=== PATIENT | male | born 1940 | race Caucasian/White ===

== ENCOUNTER 2017-12-03 09:24 | Inpatient (IN) | payer OTHER ==
[~2017-12-03] VITALS: Ht 170.2 cm; Wt 78.5 kg
[2017-12-03] MEDS ORDERED: SODIUM CHLORIDE 0.9% 500ML 500 ML IV STA (09:44)
--- NOTE | 2017-12-03 09:47 | EMERGENCY ROOM VISIT NOTE ---
History Report prepared by Yolande: Domenico Rendon Under the Supervision of: Dr. Rodney Flowers M.D. First contact with patient: 09:34 Chief Complaint: NEURO SYMPTOMS Stated Complaint: DEMENTIA History of Present Illness The patient is a 77 year old white male with a past medical history of HTN, hypothyroidism, dementia who presents to the ED with a cc of worsening dementia beginning five days ago. Positive erratic behavior, aggressive behavior, drooling more often, feeding an imaginary cat, eating imaginary food. Negative active bleeding or bruising. Pt's family states his symptoms began last Friday with an episode of erratic behavior. They reports it progressed on Friday to an aggressive out break with his . Family notes the patient was found this morning in the basement covered in sawdust. They state they do not know how he got there, and they did not see active bleeding or bruising. Family reports they do not know how he got there. They note he ate well last night. Family states this morning the patient was feeing an imaginary cat, drooling more often , and eating imaginary food. They note he does not take medication for his dementia. HPI limited secondary to the patient's dementia. Source of History: family History Limited By: dementia Review of Systems ROS limited secondary to the patient's dementia. Past Medical & Surgical Medical Problems: (1) Altered mental status (2) Dementia (3) HTN (hypertension) (4) Hypothyroidism (5) Pneumonia Surgical Problems: (1) History of lumbar surgery (2) Hx of hernia repair Family History Diabetes mellitus Hypertension Social History Smoking Status: Never Smoker Marital Status: Housing Status: lives with significant other Current/Historical Medications Scheduled Furosemide (Lasix), 20 MG PO QAM Levothyroxine Sodium (Levothyroxine Sodium), 75 MCG PO DAILY Lisinopril (Zestril), 5 MG PO DAILY Trazodone HCl (Trazodone HCl), 1 TAB PO UD Trazodone Hcl (Trazodone), 0.5 TAB PO HS Scheduled PRN Quetiapine Fumarate (Seroquel), 25 MG PO BID PRN for Agitation Allergies Coded Allergies: Sulfa Antibiotics (Unverified Allergy, Unknown, unk, 12/03/17) Physical Exam Vital Signs Date Time Temp Pulse Resp B/P (MAP) Pulse Ox O2 Delivery O2 Flow Rate FiO2 12/03/17 09:27 62 18 113/64 92 Room Air Physical Exam GENERAL: Awake, alert, well-appearing, NAD HENT: Normocephalic, atraumatic. EYES: Normal conjunctiva. Sclera non-icteric. PER. No anisocoria. Exotropia. Pinpoint pupils. NECK: Supple. No nuchal rigidity. FROM. RESPIRATORY: CTAB, no rhonchi, wheezing, crackles CARDIAC: RRR, no MRG ABDOMEN: Soft, NTND, BS+ MSK: No chest wall TTP, no LE edema NEURO: Baseline mental status. A&Ox0. Intermittently speaking in full sentences and follows commands. SKIN: No rash or jaundice noted. Medical Decision & Procedures ER Provider Diagnostic Interpretation: Radiology results as stated below per my review and radiologist interpretation: CT OF THE HEAD WITHOUT CONTRAST CLINICAL HISTORY: Weakness. COMPARISON STUDY: No previous studies for comparison. CT DOSE: 537.48 mGy.cm TECHNIQUE: Helical axial images of the head were obtained without IV contrast. Automated exposure control was utilized for the study. A dose lowering technique was utilized adhering to the principles of ALARA. FINDINGS: No acute intracranial hemorrhage, midline shift or mass effect is present. Mild ventricular dilatation is due to atrophy. Basilar cisterns are patent. There are no extra-axial collections. Mild white matter hypodensity suggests small vessel disease. There are no findings to suggest acute dural sinus thrombosis or acute territorial infarct. There are no significant calvarial abnormalities. Visualized portions of the sinuses and the mastoid air cells are clear. IMPRESSION: No acute intracranial findings. Electronically signed by: Cyril Alvarez M.D. 12/03/2017 10:36 AM Dictated Date/Time: 12/03/2017 10:34 AM CHEST ONE VIEW PORTABLE CLINICAL HISTORY: EVALUATE WEAKNESS COMPARISON STUDY: No previous studies for comparison. FINDINGS: The bones soft tissues and hemidiaphragms are normal. The cardiomediastinal silhouette is normal. The lungs are clear. The pulmonary vasculature is normal. Small parenchymal or left base IMPRESSION: Small parenchymal infiltrate left base. The above report was generated using voice recognition software. It may contain grammatical, syntax or spelling errors. Electronically signed by: Rusty Nieto M.D. 12/03/2017 10:11 AM Dictated Date/Time: 12/03/2017 10:08 AM Laboratory Results 7/25/18 09:44 Red Blood Count 5.39, Mean Corpuscular Volume 85.3, Mean Corpuscular Hemoglobin 28.2, Mean Corpuscular Hemoglobin Concent 33.0, Mean Platelet Volume 9.2, Neutrophils (%) (Auto) 71.6, Lymphocytes (%) (Auto) 18.0, Monocytes (%) (Auto) 9.0, Eosinophils (%) (Auto) 0.8, Basophils (%) (Auto) 0.2, Neutrophils # (Auto) 7.40, Lymphocytes # (Auto) 1.86, Monocytes # (Auto) 0.93, Eosinophils # (Auto) 0.08, Basophils # (Auto) 0.02 12/03/17 09:44 Test 12/03/17 09:44 White Blood Count 10.33 K/uL (4.8-10.8) Red Blood Count 5.39 M/uL (4.7-6.1) Hemoglobin 15.2 g/dL (14.0-18.0) Hematocrit 46.0 % (42-52) Mean Corpuscular Volume 85.3 fL (80-100) Mean Corpuscular Hemoglobin 28.2 pg (25-34) Mean Corpuscular Hemoglobin Concent 33.0 g/dl (32-36) Platelet Count 225 K/uL (130-400) Mean Platelet Volume 9.2 fL (7.4-10.4) Neutrophils (%) (Auto) 71.6 % Lymphocytes (%) (Auto) 18.0 % Monocytes (%) (Auto) 9.0 % Eosinophils (%) (Auto) 0.8 % Basophils (%) (Auto) 0.2 % Neutrophils # (Auto) 7.40 K/uL (1.4-6.5) Lymphocytes # (Auto) 1.86 K/uL (1.2-3.4) Monocytes # (Auto) 0.93 K/uL (0.11-0.59) Eosinophils # (Auto) 0.08 K/uL (0-0.5) Basophils # (Auto) 0.02 K/uL (0-0.2) RDW Standard Deviation 44.0 fL (36.4-46.3) RDW Coefficient of Variation 14.2 % (11.5-14.5) Immature Granulocyte % (Auto) 0.4 % Immature Granulocyte # (Auto) 0.04 K/uL (0.00-0.02) Prothrombin Time 10.7 SECONDS (9.0-12.0) Prothromb Time International Ratio 1.0 (0.9-1.1) Activated Partial Thromboplast Time 26.6 SECONDS (21.0-31.0) Partial Thromboplastin Ratio 1.0 Anion Gap 6.0 mmol/L (3-11) Est Creatinine Clear Calc Drug Dose 45.2 ml/min Estimated GFR () 61.4 Estimated GFR (Non- 53.0 BUN/Creatinine Ratio 14.6 (10-20) Calcium Level 8.8 mg/dl (8.5-10.1) Magnesium Level 2.3 mg/dl (1.8-2.4) Total Bilirubin 0.9 mg/dl (0.2-1) Direct Bilirubin 0.2 mg/dl (0-0.2) Aspartate Amino Transf (AST/SGOT) 15 U/L (15-37) Alanine Aminotransferase (ALT/SGPT) 23 U/L (12-78) Alkaline Phosphatase 128 U/L (45-117) Troponin I < 0.015 ng/ml (0-0.045) Pro-B-Type Natriuretic Peptide 28 pg/ml (0-1800) Total Protein 7.8 gm/dl (6.4-8.2) Albumin 3.8 gm/dl (3.4-5.0) Lipase 94 U/L (73-393) Thyroid Stimulating Hormone (TSH) 3.170 uIu/ml (0.300-4.500) Laboratory results reviewed by me ECG Per My Interpretation Indication: altered mental status Rate (beats per minute): 59 Rhythm: sinus bradycardia Findings: T-wave inversion (Lead III), other (Normal intervals. Normal axis.) ED Course 0937: The patient was evaluated in room B04B. A complete history and physical exam was performed. 1117: Upon reexamination, the patient was resting. I discussed the test results and treatment plan with his family. The patient will be evaluated for further management. 1124: I discussed the patient's case with LAEX Domingo, [facility]ist. The patient will be evaluated for further management. Medical Decision The patient is a 77 year old white male with a past medical history of HTN, hypothyroidism, dementia who presents to the ED with a cc of worsening dementia beginning five days ago. Nursing notes reviewed. Ancillary studies and prior records reviewed. Differential diagnosis: Etiologies such as metabolic, infection, hypoglycemia, electrolyte abnormalities , cardiac sources, intracerebral event, toxicologic, neurologic, as well as others were entertained. Patient was seen and evaluated the bedside. There was concern for increased lapses in responsiveness as well as an increased drooling. The patient apparently per family had fairly negative workup at [place]. Patient does intermittently follow commands and does seem appropriate on occasion. The patient is alert but not oriented. Patient does have a known history of dementia. Given the prolonged time course and unknown last well time I do not believe that this is an acute stroke nor with the patient be a TPA candidate. Patient did have blood work completed along with EKG, troponin, chest x-ray, urinalysis, and CT of the brain. Patient's imaging studies are negative acute. EKG is fairly unremarkable troponin is not elevated. Chest x-ray did show questionable left lower lobe pneumonia. Given the patient's drooling and concern for left lower lobe pneumonia the patient was started on Rocephin and is a 3. I did speak with the on-call hospitalist and discussed the patient's CURP 65 score was 2. We did discuss the possibility of aspiration but we deferred any anaerobic coverage at this time. Patient was admitted to the medicine service. Medication Reconcilliation Current Medication List: was personally reviewed by me Blood Pressure Screening Patient's blood pressure: Normal blood pressure Blood pressure disposition: Did not require urgent referral Consults Time Called: 1115 Consulting Physician[facility] Returned Call: 1124 I discussed the patient's case with [facility]LEX [facility]. The patient will be evaluated for further management. Impression Primary Impression: Pneumonia Additional Impression: Dementia Scribe Attestation The scribe's documentation has been prepared under my direction and personally reviewed by me in its entirety. I confirm that the note above accurately reflects all work, treatment, procedures, and medical decision making performed by me. Departure Information Dispostion Being Evaluated By Hospitalist Referrals Gene Fernandez M.D. (PCP) Forms WORK / SCHOOL INSTRUCTIONS, HOME CARE DOCUMENTATION FORM, IMPORTANT VISIT INFORMATION Patient Instructions My [facility] Problem Qualifiers Primary Impression: Pneumonia Pneumonia type: due to unspecified organism Laterality: left Lung location : lower lobe of lung Qualified Codes: J18.1 - Lobar pneumonia, unspecified organism Additional Impression: Dementia Dementia type: unspecified type Dementia behavioral disturbance: without behavioral disturbance Qualified Codes: F03.90 - Unspecified dementia without behavioral disturbance
[2017-12-03 10:02] LABS: BASO % 0.2 %; BASO ABS # 0.02 K/uL (0-0.2); EOS % 0.8 %; EOS ABS # 0.08 K/uL (0-0.5); HEMOGLOBIN 15.2 g/dL (14.0-18.0); IG# 0.04 K/uL (0.00-0.02); LYMPH ABS # 1.86 K/uL (1.2-3.4); MEAN CELL VOLUME 85.3 fL (80-100); MEAN CORPUSCULAR HEMOGLOBIN 28.2 pg (25-34); MEAN PLATELET VOLUME 9.2 fL (7.4-10.4); MONO ABS # 0.93 K/uL (0.11-0.59); NEUT % 71.6 %; PLATELET COUNT 225 K/uL (130-400); RED CELL DISTRIBUTION WIDTH CV 14.2 % (11.5-14.5); WHITE BLOOD COUNT 10.33 K/uL (4.8-10.8)
[2017-12-03] MEDS ORDERED: LEVO75TA5 PO (11:54)
[2017-12-03] MEDS ORDERED: LISI-729 PO (11:54)
[2017-12-03] MEDS ORDERED: QUET1TAB30 PO (11:54)
[2017-12-03] MEDS ORDERED: TRAZ100T29 PO ×2 (11:54)
[2017-12-03] MEDS ORDERED: FURO-85 PO (11:54)
[2017-12-03 12:00] LABS: PTT PATIENT 26.6 SECONDS (21.0-31.0)
[2017-12-03] MEDS ORDERED: ONDANSETRON INJ 2 MG/ML 2 ML VIAL IV PRN (12:00)
[2017-12-03] MEDS ORDERED: ACETAMINOPHEN 325 MG TAB PO PRN (12:00)
[2017-12-03] MEDS ORDERED: POLYETHYLENE (MIRALAX) 17 GM PACK PO PRN (12:00)
[2017-12-03] MEDS ORDERED: SODIUM CHLORIDE 0.9% 1000ML 1,000 ML IV SCH (12:00)
[2017-12-03] MEDS ORDERED: DSY50 PO (12:02)
[2017-12-03] MEDS ORDERED: TRAZ50TA35 PO (12:02)
[2017-12-03] MEDS ORDERED: AZITHROMYCIN 250 MG TAB ONE (12:04)
[2017-12-03] MEDS ORDERED: CEFTRIAXONE SOD INJ 1 GM ADDVIAL ONE (12:05)
[2017-12-03 12:10] VITALS: O2SAT 92; Ht 170.2 cm; Wt 78.5 kg
[2017-12-03] MEDS ORDERED: QUETIAPINE FUMARATE 25 MG TAB PO PRN (12:15)
--- NOTE | 2017-12-03 12:23 | DIAGNOSTIC IMAGING REPORT ---
CT OF THE HEAD WITHOUT CONTRAST CLINICAL HISTORY: Weakness. COMPARISON STUDY: No previous studies for comparison. CT DOSE: 537.48 mGy.cm TECHNIQUE: Helical axial images of the head were obtained without IV contrast. Automated exposure control was utilized for the study. A dose lowering technique was utilized adhering to the principles of ALARA. FINDINGS: No acute intracranial hemorrhage, midline shift or mass effect is present. Mild ventricular dilatation is due to atrophy. Basilar cisterns are patent. There are no extra-axial collections. Mild white matter hypodensity suggests small vessel disease. There are no findings to suggest acute dural sinus thrombosis or acute territorial infarct. There are no significant calvarial abnormalities. Visualized portions of the sinuses and the mastoid air cells are clear. IMPRESSION: No acute intracranial findings. Electronically signed by: Cyril Alvarez M.D. 12/03/2017 10:36 AM Dictated Date/Time: 12/03/2017 10:34 AM
[2017-12-03 13:43] LABS: BLOOD UREA NITROGEN 19 mg/dl (7-18); GLUCOSE 107 mg/dl (70-99)
[2017-12-03 13:44] LABS: ALBUMIN 3.8 gm/dl (3.4-5.0); CALCIUM 8.8 mg/dl (8.5-10.1); CARBON DIOXIDE 29 mmol/L (21-32); POTASSIUM 3.9 mmol/L (3.5-5.1); SODIUM 139 mmol/L (136-145); TOTAL PROTEIN 7.8 gm/dl (6.4-8.2)
[2017-12-03 13:45] LABS: ALKALINE PHOSPHATASE 128 U/L (45-117); ALT/SGPT 23 U/L (12-78); AST/SGOT 15 U/L (15-37); LIPASE 94 U/L (73-393)
[2017-12-03] MEDS ORDERED: PNEUMOCOCCAL ADMINISTRATION CHARGE ONE (14:15)
[2017-12-03] MEDS ORDERED: PNEUMOCOCCAL POLYSACCHARIDES 25 MCG/0.5 ML VIAL/SYR IM. ONE (14:15)
--- NOTE | 2017-12-03 14:18 | DIAGNOSTIC IMAGING REPORT ---
CHEST ONE VIEW PORTABLE CLINICAL HISTORY: EVALUATE WEAKNESS COMPARISON STUDY: No previous studies for comparison. FINDINGS: The bones soft tissues and hemidiaphragms are normal. The cardiomediastinal silhouette is normal. The lungs are clear. The pulmonary vasculature is normal. Small parenchymal or left base IMPRESSION: Small parenchymal infiltrate left base. The above report was generated using voice recognition software. It may contain grammatical, syntax or spelling errors. Electronically signed by: Rusty Nieto M.D. 12/03/2017 10:11 AM Dictated Date/Time: 12/03/2017 10:08 AM
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
[2017-12-03] MEDS: HEPARIN SOD 5000 UNIT/0.5 ML CARP SQ SCH ×2 (15:00→20:47)
[2017-12-03 15:41] VITALS: BP 126/74; PULSE 63; TEMP 36.1; O2SAT 92
[2017-12-03 16:30] VITALS: O2SAT 92
[2017-12-03] MEDS: TRAZODONE HCL 50 MG TAB PO SCH ×2 (17:49→20:43)
[2017-12-03 23:54] VITALS: BP 134/82; PULSE 56; TEMP 36.9; O2SAT 95
[2017-12-04] MEDS: LEVOTHYROXINE 75 MCG TAB PO SCH (05:51)
[2017-12-04] MEDS: HEPARIN SOD 5000 UNIT/0.5 ML CARP SQ SCH ×3 (05:55→21:43)
[2017-12-04 06:56] LABS: HEMATOCRIT 42.9 % (42-52); MEAN CELL VOLUME 85.8 fL (80-100); MEAN CORPUSCULAR HGB CONC 32.6 g/dl (32-36); MEAN PLATELET VOLUME 9.5 fL (7.4-10.4); PLATELET COUNT 179 K/uL (130-400); RED CELL DISTRIBUTION WIDTH CV 14.4 % (11.5-14.5); WHITE BLOOD COUNT 6.84 K/uL (4.8-10.8)
[2017-12-04 07:30] LABS: CALCIUM 8.3 mg/dl (8.5-10.1); CREATININE 1.15 mg/dl (0.60-1.40); POTASSIUM 4.2 mmol/L (3.5-5.1)
[2017-12-04 07:32] VITALS: BP 123/73; PULSE 60; TEMP 36.7; O2SAT 96
[2017-12-04] MEDS: LISINOPRIL 5 MG TAB PO SCH (07:46)
[2017-12-04] MEDS: AZITHROMYCIN 250 MG TAB PO SCH (07:46)
[2017-12-04] MEDS: FUROSEMIDE 20 MG TAB PO SCH (07:46)
[2017-12-04] MEDS: CEFTRIAXONE SOD INJ 1 GM in DEXTROSE 5% ADD-VANTAGE 50ML 50 ML IV SCH (12:56)
[2017-12-04 15:05] VITALS: BP 126/73; PULSE 57; TEMP 36.3; O2SAT 97
[2017-12-04] MEDS: TRAZODONE HCL 50 MG TAB PO SCH ×2 (17:42→21:20)
--- NOTE | 2017-12-04 18:22 | Progress Note ---
Internal Med Progress Note Date of Service: Dec 04, 2017. Provider Documentation: SUBJECTIVE: Advanced dementia, very pleasant No fever or chills Minimum cough in dependent in ADLs, walking independently in room, no loss of balance noted Brother visiting OBJECTIVE: Vital Signs-as noted below Exam: General-elderly male, no apparent distress Eyes-sclera nonicteric, pupils bilateral equal reactive to light extraocular muscle intact ENT-moist oral mucosa Neck-supple, no JVD no carotid bruit thyromegaly, trachea midline Lungs-diminished with crackles at base Heart-S1-S2 no murmur gallop Abdomen-soft nontender, no organomegaly, bowel sounds active Extremities-no lower extremity edema, no rash no deformed Neuro-baseline advanced dementia, no focal neurological deficit Lab data as noted below. ASSESSMENT & PLAN: COMMINUTED ACQUIRED PNEUMONIA Worsening of mental status/confused CXR:IMPRESSION: Small parenchymal infiltrate left base. Empiric antibiotic with IV Rocephin and oral Zithromax Plan to switch to single oral agent tomorrow, complete total 5/7 days course No evidence of sepsis Monitor clinically ALTERED MENTAL STATUS/CONFUSION /METABOLIC ENCEPHALOPATHY DEMENTIA History of advanced dementia, with a gradual deconditioning noted by family Worsening of mental status in the past few days, associated with agitation, wandering Possible metabolic encephalopathy secondary to dehydration, pneumonia UA: negative. CT head: no acute changes -Monitor clinically -Fall precaution -Home meds Seroquel, trazodone-for agitation-continue -Caution for sundowning/delirium Ordered for bed and chair alarm Family is interested in long-term placement -case management consulted for assistance in possible placement HTN Stable -continue lisinopril, lasix HYPOTHYROIDISM TSH: 3.1 -continue levothyroxine CKD III renal function stable Cr: 1.3. baseline Cr: 1.4 -monitor renal functions -avoid nephrotoxic agents when possible DVT Prophylaxis -Heparin SQ CODE STATUS: DNR/DNI DISPOSITION To be determined Will need placement PT OT evaluation requested Social service consulted for discharge planning Vital Signs: Date Time Temp Pulse Resp B/P (MAP) Pulse Ox O2 Delivery O2 Flow Rate FiO2 12/04/17 23:42 36.6 61 18 121/70 (87) 93 Room Air 12/04/17 21:30 Room Air 12/04/17 15:05 36.3 57 18 126/73 (90) 97 Room Air 12/04/17 09:15 Room Air 12/04/17 07:32 36.7 60 18 123/73 (90) 96 Room Air Lab Results: Results Past 24 Hours Test 12/04/17 06:01 Range/Units White Blood Count 6.84 4.8-10.8 K/uL Red Blood Count 5.00 4.7-6.1 M/uL Hemoglobin 14.0 14.0-18.0 g/dL Hematocrit 42.9 42-52 % Mean Corpuscular Volume 85.8 80-100 fL Mean Corpuscular Hemoglobin 28.0 25-34 pg Mean Corpuscular Hemoglobin Concent 32.6 32-36 g/dl RDW Standard Deviation 45.0 36.4-46.3 fL RDW Coefficient of Variation 14.4 11.5-14.5 % Platelet Count 179 130-400 K/uL Mean Platelet Volume 9.5 7.4-10.4 fL Sodium Level 141 136-145 mmol/L Potassium Level 4.2 3.5-5.1 mmol/L Chloride Level 108 98-107 mmol/L Carbon Dioxide Level 26 21-32 mmol/L Anion Gap 7.0 3-11 mmol/L Blood Urea Nitrogen 17 7-18 mg/dl Creatinine 1.15 0.60-1.40 mg/dl Est Creatinine Clear Calc Drug Dose 51.1 ml/min Estimated GFR () 71.2 Estimated GFR (Non- 61.5 BUN/Creatinine Ratio 14.5 10-20 Random Glucose 103 70-99 mg/dl Calcium Level 8.3 8.5-10.1 mg/dl
[2017-12-04 23:42] VITALS: BP 121/70; PULSE 61; TEMP 36.6; O2SAT 93
[2017-12-05] MEDS: HEPARIN SOD 5000 UNIT/0.5 ML CARP SQ SCH ×2 (06:26→13:52)
[2017-12-05] MEDS: LEVOTHYROXINE 75 MCG TAB PO SCH (06:38)
[2017-12-05] MEDS: AZITHROMYCIN 250 MG TAB PO SCH (07:11)
[2017-12-05] MEDS: LISINOPRIL 5 MG TAB PO SCH ×2 (07:12→14:58)
[2017-12-05] MEDS: FUROSEMIDE 20 MG TAB PO SCH (07:12)
[2017-12-05 07:54] VITALS: BP 96/69; PULSE 55; TEMP 36.3; O2SAT 96
[2017-12-05] MEDS: CEFTRIAXONE SOD INJ 1 GM in DEXTROSE 5% ADD-VANTAGE 50ML 50 ML IV SCH (12:46)
[2017-12-05 15:22] VITALS: BP 106/66; PULSE 73; TEMP 35.9; O2SAT 96
[2017-12-05] MEDS: TRAZODONE HCL 50 MG TAB PO SCH (16:11)
--- NOTE | 2017-12-05 16:21 | Discharge Instructions ---
Discharge Instructions Date of Service Dec 05, 2017. Admission Reason for Admission: Altered Mental Status, Pneumonia Discharge Discharge Diagnosis / Problem: COMMUNITY-ACQUIRED PNEUMONIA/DEMENTIA Discharge Goals Goal(s): Decrease discomfort, Improve function, Diagnostic testing, Therapeutic intervention Activity Recommendations Activity Limitations: resume your previous activity . Instructions / Follow-Up Instructions / Follow-Up Hospital follow-up with family physician Dr. HURT, in a week. Please call office to schedule an appointment Current Hospital Diet Patient's current hospital diet: AHA Diet (Heart Healthy) Discharge Diet Recommended Diet: AHA Diet (Heart Healthy) Pending Studies Studies pending at discharge: no Medical Emergencies . Who to Call and When: Medical Emergencies: If at any time you feel your situation is an emergency, please call 911 immediately. . Non-Emergent Contact Non-Emergency issues call your: Primary Care Provider . . "Provider Documentation" section prepared by Peyton Karimi. .
[2017-12-05] MEDS ORDERED: DXY100 PO (16:23)
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
[2017-12-05 16:34] VITALS: BP 106/66; PULSE 73; O2SAT 96
[2017-12-05] MEDS ORDERED: CLON0.5T9 PO (16:42)
== END 2017-12-05 17:00 | disposition home or self-care (01) | DRG 193 ==
LOC: C.EDB 09:25 → C.4E 11:59 → ENRESERV 12:16
PROVIDERS: ADMIT Internal Medicine; ATTEND Hospitalist
DX: J18.9 Pneumonia, unspecified organism (principal); G93.41 Metabolic encephalopathy; F03.91 Unspecified dementia, unspecified severity, with behavioral disturbance; Z91.83 Wandering in diseases classified elsewhere; R53.81 Other malaise; E86.0 Dehydration; I12.9 Hypertensive chronic kidney disease with stage 1 through stage 4 chronic kidney disease, or unspecified chronic kidney disease; N18.3 Chronic kidney disease, stage 3 (moderate); E03.9 Hypothyroidism, unspecified; Z66 Do not resuscitate; Z87.891 Personal history of nicotine dependence; Z79.899 Other long term (current) drug therapy; Z88.2 Allergy status to sulfonamides

== ENCOUNTER 2017-12-06 00:15 | Inpatient (IN) | payer OTHER ==
[~2017-12-06] VITALS: Ht 170.2 cm; Wt 78.1 kg
[~2017-12-06 00:15] MED LIST: CLON0.5T9 PO; DXY100 PO; FURO-85 PO; LEVO75TA5 PO; LISI-729 PO; QUET1TAB30 PO; TRAZ1TAB49 PO; TRAZ50TA35 PO
--- NOTE | 2017-12-06 01:26 | EMERGENCY ROOM VISIT NOTE ---
History Report prepared by Yolande: Kd Sierra Under the Supervision of: Dr. April Medina D.O. First contact with patient: 01:04 Chief Complaint: OTHER COMPLAINT Stated Complaint: HALLUCINATIONS History of Present Illness The patient is a 77 year old male who presents to the Emergency Room with complaints of constant visual hallucinations beginning a few days ago. Per nurse , the patient has been having hallucinations at home. She states that the patient's does "not know what to do with him," prompting his visit to the emergency department tonight. She notes that the patient was recently diagnosed with pneumonia and was admitted as an inpatient from 12/03/2017-12/05/2017. HPI limited secondary to AMS. Source of History: nursing staff History Limited By: AMS Onset: a few days ago Position: head Quality: other (visual hallucinations) Timing: constant Review of Systems See HPI for pertinent positives & negatives. A total of 10 systems reviewed and were otherwise negative. Past Medical & Surgical Medical Problems: (1) Agitation (2) Altered mental status (3) Dementia (4) HTN (hypertension) (5) Hypothyroidism (6) Pneumonia Surgical Problems: (1) History of lumbar surgery (2) Hx of hernia repair Family History Diabetes mellitus Hypertension Social History Smoking Status: Unknown if Ever Smoked Drug Use: none Marital Status: Housing Status: lives with family Occupation Status: retired Current/Historical Medications Scheduled Doxycycline Hyclate (Doxycycline Hyclate), 1 CAP PO BID Furosemide (Lasix), 20 MG PO QAM Levothyroxine Sodium (Levothyroxine Sodium), 75 MCG PO DAILY Lisinopril (Zestril), 5 MG PO DAILY Trazodone HCl (Trazodone HCl), 1 TAB PO UD Trazodone Hcl (Trazodone), 0.5 TAB PO HS Scheduled PRN Clonazepam (Klonopin), 1 TAB PO DAILY PRN for Sleep Quetiapine Fumarate (Seroquel), 25 MG PO BID PRN for Agitation Allergies Coded Allergies: Sulfa Antibiotics (Unverified Allergy, Unknown, unk, 12/06/17) Physical Exam Vital Signs Date Time Temp Pulse Resp B/P (MAP) Pulse Ox O2 Delivery O2 Flow Rate FiO2 12/06/17 04:14 65 20 150/87 96 Room Air 12/06/17 02:33 80 12/06/17 02:30 77 22 164/94 95 Room Air 12/06/17 00:25 36.4 81 20 107/64 95 Room Air Physical Exam General: Patient pleasantly demented, unable to answer any questions or follow commands appropriately. HEENT: Head - normocephalic and atraumatic Pupils are equal, round, and reactive to light. Extraocular eye muscles are intact, and sclera are anicteric. Nose - moist nasal mucosa without discharge. Mouth - dry buccal mucosa. Oropharynx is nonerythematous and there is no tonsillar exudate or edema noted. Neck: Supple; no JVD, nuchal rigidity, cervical lymphadenopathy. Heart: Regular rate and rhythm. There is a normal S1 and S2 with no murmurs, clicks, or gallops appreciated. Lungs: Clear to auscultation bilaterally with no wheezes, rales, or rhonchi. Abdomen: Soft, completely nontender, nondistended, with good bowel sounds. There are no palpable pulsatile masses or hepatosplenomegaly. There is no guarding, rigidity, or rebound noted. Extremities: No evidence of cyanosis, clubbing, or edema. There are easily palpable peripheral pulses. Skin: warm and dry with good turgor and no rashes. Medical Decision & Procedures ER Provider Diagnostic Interpretation: Radiology results as stated below per my review and the radiologist's interpretation: CT HEAD: No ICH, mass effect, or edema. No skull fracture. Visualized sinuses and mastoid air cells are clear. Radiologist: Sadaf Rutherford M.D. Laboratory Results 12/06/17 02:16 Red Blood Count 5.32, Mean Corpuscular Volume 84.6, Mean Corpuscular Hemoglobin 28.4, Mean Corpuscular Hemoglobin Concent 33.6, Mean Platelet Volume 9.3, Neutrophils (%) (Auto) 62.5, Lymphocytes (%) (Auto) 24.5, Monocytes (%) (Auto) 9.3, Eosinophils (%) (Auto) 2.9, Basophils (%) (Auto) 0.4, Neutrophils # (Auto) 5.00, Lymphocytes # (Auto) 1.96, Monocytes # (Auto) 0.74, Eosinophils # (Auto) 0.23, Basophils # (Auto) 0.03 12/06/17 02:16 Test 12/06/17 02:16 12/06/17 03:45 White Blood Count 7.99 K/uL (4.8-10.8) Red Blood Count 5.32 M/uL (4.7-6.1) Hemoglobin 15.1 g/dL (14.0-18.0) Hematocrit 45.0 % (42-52) Mean Corpuscular Volume 84.6 fL (80-100) Mean Corpuscular Hemoglobin 28.4 pg (25-34) Mean Corpuscular Hemoglobin Concent 33.6 g/dl (32-36) Platelet Count 206 K/uL (130-400) Mean Platelet Volume 9.3 fL (7.4-10.4) Neutrophils (%) (Auto) 62.5 % Lymphocytes (%) (Auto) 24.5 % Monocytes (%) (Auto) 9.3 % Eosinophils (%) (Auto) 2.9 % Basophils (%) (Auto) 0.4 % Neutrophils # (Auto) 5.00 K/uL (1.4-6.5) Lymphocytes # (Auto) 1.96 K/uL (1.2-3.4) Monocytes # (Auto) 0.74 K/uL (0.11-0.59) Eosinophils # (Auto) 0.23 K/uL (0-0.5) Basophils # (Auto) 0.03 K/uL (0-0.2) RDW Standard Deviation 43.1 fL (36.4-46.3) RDW Coefficient of Variation 14.1 % (11.5-14.5) Immature Granulocyte % (Auto) 0.4 % Immature Granulocyte # (Auto) 0.03 K/uL (0.00-0.02) Anion Gap 8.0 mmol/L (3-11) Est Creatinine Clear Calc Drug Dose 42.7 ml/min Estimated GFR () 56.2 Estimated GFR (Non- 48.5 BUN/Creatinine Ratio 15.4 (10-20) Calcium Level 8.6 mg/dl (8.5-10.1) Total Bilirubin 0.4 mg/dl (0.2-1) Aspartate Amino Transf (AST/SGOT) 24 U/L (15-37) Alanine Aminotransferase (ALT/SGPT) 40 U/L (12-78) Alkaline Phosphatase 124 U/L (45-117) Troponin I < 0.015 ng/ml (0-0.045) Total Protein 7.4 gm/dl (6.4-8.2) Albumin 3.5 gm/dl (3.4-5.0) Globulin 3.9 gm/dl (2.5-4.0) Albumin/Globulin Ratio 0.9 (0.9-2) Thyroid Stimulating Hormone (TSH) 6.250 uIu/ml (0.300-4.500) Ethyl Alcohol mg/dL < 3.0 mg/dl (0-3) Urine Color YELLOW Urine Appearance CLEAR (CLEAR) Urine pH 5.0 (4.5-7.5) Urine Specific [place] 1.026 (1.000-1.030) Urine Protein NEG (NEG) Urine Glucose (UA) NEG (NEG) Urine Ketones NEG (NEG) Urine Occult Blood NEG (NEG) Urine Nitrite NEG (NEG) Urine Bilirubin NEG (NEG) Urine Urobilinogen NEG (NEG) Urine Leukocyte Esterase NEG (NEG) Urine Opiates Screen NEG (NEG) Urine Methadone, Qualitative NEG (NEG) Urine Barbiturates NEG (NEG) Urine Phencyclidine (PCP) Level NEG (NEG) Ur Amphetamine/Methamphetamine NEG (NEG) MDMA (Ecstasy) Screen POS (NEG) Urine Benzodiazepines Screen NEG (NEG) Urine Cocaine Metabolite NEG (NEG) Urine Marijuana (THC) NEG (NEG) Laboratory results per my review. Medications Administered Medications (Trade) Dose Ordered Sig/Arabella Route Start Time Stop Time Status Last Admin Dose Admin Sodium Chloride 500 ml @ 999 mls/hr Q31M STAT IV 12/06/17 05:11 12/06/17 05:41 DC 12/06/17 05:11 999 MLS/HR Procedure Sodium Chloride 500 ml @ 999 mls/hr IV. ECG Per My Interpretation Indication: altered mental status Rate (beats per minute): 81 Rhythm: normal sinus Findings: no ectopy, other (No ischemia, no ST segment changes) ED Course 0120: The patient was evaluated in room B9. A complete history and physical examination were performed. Nursing notes and previous electronic medical records were reviewed. IV lock was established and labs were drawn as above. The patient was just recently discharged from the hospital with an episode of pneumonia. It seems that the family decided to take him home after that discharge but felt that they were now unable care for him due to his severely advanced dementia. 0401: I reevaluated the patient. Security is still in the room. The patient is sleeping. 0454: I spoke with Dr. Lloyd of the [facility]. The patient will be evaluated for further management and care. 0511: Sodium Chloride 500 ml @ 999 mls/hr IV. Medical Decision The patient is a 77 year old male who presents to the Emergency Room with complaints of constant visual hallucinations beginning a few days ago. Differential diagnoses include: dehydration, electrolyte abnormality, and hypoglycemia. Lab Results Show: Alcohol negative. TSH 6.2. BUN 22. Creatinine 1.4. Glucose 113. LFTs normal. No leukocytosis. Stable H&H. This is a 77-year-old male patient brought to the emergency department tonight by EMS after the patient's called 911. She explained EMS that the patient seems to be hallucinating. She feels that she can no longer care for him at home. The patient has significantly advanced dementia. He is recovering from pneumonia. His vital signs are stable. He was unable to answer any questions on my exam. His mental status seems to be at baseline Medication Reconcilliation Current Medication List: was personally reviewed by me Blood Pressure Screening Patient's blood pressure: Elevated blood pressure Elevated blood pressure will be monitored by hospitalist. Consults Time Called: [phone] Consulting Physician[facility] Returned Call: [phone] Discussed the patient's case. The patient will be evaluated for further management. Impression Primary Impression: Dehydration Additional Impression: Dementia Scribe Attestation The scribe's documentation has been prepared under my direction and personally reviewed by me in its entirety. I confirm that the note above accurately reflects all work, treatment, procedures, and medical decision making performed by me. Departure Information Dispostion Being Evaluated By Hospitalist Referrals Suni Ham M.D. (PCP) Patient Instructions My [facility] Problem Qualifiers Additional Impression: Dementia Dementia type: unspecified type Dementia behavioral disturbance: with behavioral disturbance Qualified Codes: F03.91 - Unspecified dementia with behavioral disturbance
[2017-12-06 02:26] LABS: BASO % 0.4 %; BASO ABS # 0.03 K/uL (0-0.2); EOS % 2.9 %; EOS ABS # 0.23 K/uL (0-0.5); HEMOGLOBIN 15.1 g/dL (14.0-18.0); IG# 0.03 K/uL (0.00-0.02); LYMPH % 24.5 %; LYMPH ABS # 1.96 K/uL (1.2-3.4); MEAN CELL VOLUME 84.6 fL (80-100); MEAN CORPUSCULAR HEMOGLOBIN 28.4 pg (25-34); MEAN CORPUSCULAR HGB CONC 33.6 g/dl (32-36); MEAN PLATELET VOLUME 9.3 fL (7.4-10.4); MONO % 9.3 %; MONO ABS # 0.74 K/uL (0.11-0.59); NEUT % 62.5 %; PLATELET COUNT 206 K/uL (130-400); RED CELL DISTRIBUTION WIDTH CV 14.1 % (11.5-14.5); RED CELL DISTRIBUTION WIDTH SD 43.1 fL (36.4-46.3); WHITE BLOOD COUNT 7.99 K/uL (4.8-10.8)
[2017-12-06 02:55] LABS: ALBUMIN 3.5 gm/dl (3.4-5.0); ALKALINE PHOSPHATASE 124 U/L (45-117); ALT/SGPT 40 U/L (12-78); AST/SGOT 24 U/L (15-37); BLOOD UREA NITROGEN 22 mg/dl (7-18); CALCIUM 8.6 mg/dl (8.5-10.1); CARBON DIOXIDE 27 mmol/L (21-32); GLUCOSE 113 mg/dl (70-99); POTASSIUM 3.9 mmol/L (3.5-5.1); SODIUM 140 mmol/L (136-145); TOTAL PROTEIN 7.4 gm/dl (6.4-8.2)
[2017-12-06] MEDS ORDERED: SODIUM CHLORIDE 0.9% 500ML 500 ML IV STA (05:11)
[2017-12-06] MEDS ORDERED: ACETAMINOPHEN 325 MG TAB PO PRN (05:30)
[2017-12-06] MEDS ORDERED: POLYETHYLENE (MIRALAX) 17 GM PACK PO PRN (05:30)
[2017-12-06] MEDS ORDERED: ONDANSETRON INJ 2 MG/ML 2 ML VIAL IV PRN (05:30)
[2017-12-06] MEDS ORDERED: ALUMINUM/MAGNESIUM/SIMETH (MAALOX MAX) 30 ML UDC PO PRN (05:30)
[2017-12-06] MEDS ORDERED: CLONAZEPAM 0.5 MG TAB PO PRN (05:45)
[2017-12-06 07:00] VITALS: Ht 170.2 cm; Wt 78.1 kg
--- NOTE | 2017-12-06 08:50 | DIAGNOSTIC IMAGING REPORT ---
CT HEAD WITHOUT CONTRAST (CT) CLINICAL HISTORY: Altered mental status. Hallucinations. COMPARISON STUDY: 12/03/2017 TECHNIQUE: Axial CT of the brain is performed from the vertex to the skull base. IV contrast was not administered for this examination. A dose lowering technique was utilized adhering to the principles of ALARA. CT DOSE: 614.27 mGy.cm FINDINGS: No intra or extra-axial mass lesions are visualized. There is no CT evidence of acute cortical infarction. There is no evidence of midline shift. There is no acute hemorrhage. No calvarial fractures are visualized. There are patchy white matter hypodensities likely on a small vessel basis. There is moderate ventricular prominent which is felt to be secondary to volume loss. There is no evidence of acute sinusitis IMPRESSION: No acute intracranial findings Electronically signed by: Finn Nugent M.D. 12/06/2017 8:49 AM Dictated Date/Time: 12/06/2017 8:48 AM
--- NOTE | 2017-12-06 09:02 | HISTORY & PHYSICAL EXAMINATION ---
DATE OF ADMISSION: 12/06/2017 CHIEF COMPLAINT: Altered mental status. HISTORY OF PRESENT ILLNESS: This is a 77-year-old male with past medical history significant for hypertension, dementia, hypothyroidism, was recently in the hospital for worsening dementia and agitation and was not able to take care of him at home and he was admitted and he was also treated for community-acquired pneumonia and he was seemed to be at baseline and patient's family decided to take him home and he was discharged . But at home, patient was again getting agitated and was not able to take care of him and was brought him to the ER. In the ER, patient was agitated requiring security in the room. Otherwise, he is hemodynamically stable, could not tell his name and could not get any other review of symptoms from the patient, was able to examine him briefly. ALLERGIES: SULFA ANTIBIOTICS. PAST MEDICAL HISTORY: As mentioned above. PAST SURGICAL HISTORY: History of lumbar surgery, history of hernia repair. FAMILY HISTORY: Diabetes, hypertension. SOCIAL HISTORY: Former smoker, quit in 1959. No alcohol use, no drug use. , currently lives with his significant other. REVIEW OF SYSTEMS: Unobtainable. MEDICATIONS: Patient is on doxepin 100 mg p.o. b.i.d. for 4 more days, Lasix 20 mg daily, levothyroxine 75 mcg daily, lisinopril 5 mg daily, Seroquel 25 mg p.o. b.i.d. p.r.n., trazodone 50 mg 1 tablet at dinner and 0.5 mg tablet at bedtime. PHYSICAL EXAMINATION: GENERAL: Patient is of moderate built, somewhat agitated. VITAL SIGNS: Temperature 36.4, pulse 64, respiratory rate 20, blood pressure 150/87, oxygen 96% on room air. HEENT: Pupils reactive to light. NECK: No obvious neck masses seen. CARDIOVASCULAR: S1, S2 heard, regular rate and rhythm, no murmur, no gallop. RESPIRATORY SYSTEM: Normal AP diameter. No accessory muscle use. No wheezing, no crackles. ABDOMEN: Soft, bowel sounds present. Nontender. No distention. CENTRAL NERVOUS SYSTEM: Alert and awake, agitated. EXTREMITIES: No edema, no erythema seen. LABORATORIES: WBC 7.9, hemoglobin 15.1, hematocrit 45, platelets 206. Sodium 140, potassium 3.9, chloride 105, bicarbonate 27, BUN 22, creatinine 1.4, serum glucose 113, calcium 8.6, total bilirubin 0.4, AST 24, ALT 40, alkaline phosphatase 124. Troponin I less than 0.015. TSH 6.25. Urinalysis negative. CT of the head, official report pending. ASSESSMENT AND PLAN: This is a 77-year-old male presents with dementia with behavioral issues. PROBLEM: 1. Dementia with behavioral issues with agitation. He was admitted in the hospital for same issues and was noted for pneumonia and discharged yesterday as the family wanted to take him back home, but it seems that his is not able to care of him at home and sent him back to the ER, requiring one on one currently, will admit to medical floor with one on one. Social service to help with his discharge planning, may need long-term facility with family not able to take care of him at home. 2. History of hypertension. Continue lisinopril. 3. History of hypothyroidism. Continue Synthroid. TSH is slightly elevated. We will follow the repeat labs. 4. Chronic kidney stage III. Baseline creatinine around 1.4, creatinine is 1.43. Follow labs. 5. Deep venous thrombosis prophylaxis, heparin subQ. 6. Code status: DNR last admission, could not verify at this time, so keep him full code for now. DISPOSITION: Admit to medical floor, social service to help with discharge planning. LIZA
[2017-12-06] MEDS: LISINOPRIL 5 MG TAB PO SCH (12:37)
[2017-12-06] MEDS: FUROSEMIDE 20 MG TAB PO SCH (12:37)
[2017-12-06] MEDS: QUETIAPINE FUMARATE 25 MG TAB PO PRN (12:38)
[2017-12-06] MEDS: DOXYCYCLINE HYCLATE 100 MG CAP PO SCH ×2 (13:02→21:42)
[2017-12-06] MEDS: ENOXAPARIN 40 MG/0.4 ML SYR SQ SCH (13:02)
[2017-12-06 14:59] VITALS: BP 115/65; PULSE 69; TEMP 36.6; O2SAT 92
[2017-12-06 16:10] VITALS: O2SAT 92
[2017-12-06] MEDS: TRAZODONE HCL 50 MG TAB PO SCH ×2 (18:04→21:42)
--- NOTE | 2017-12-06 18:20 | Progress Note ---
Progress Note Date of Service Dec 06, 2017. Progress Note ATTENDING ADDENDUM 77-year-old male with advanced dementia-admitted to [facility] for worsening confusion, behavioral disturbance, family was not able to take care of him at home, this was waiting for replacement at dementia unit in [place] Patient was treated empirically for left lower lobe pneumonia with doxycycline Yesterday 12/06/2007 patient was calm and cooperative wanted to take him home other than keeping the patient for the weekend waiting for replacement As patient gets more confused in hospital stay After being discharged home, patient got-more confused, agitated, combative Patient was brought in again to ER as family member was not able to care for him at home 'Initial lab work shows no evidence of infection, no dehydration Patient was admitted to medical floor physician liaison patient was very agitated requires security rep to calm him down Later to the day he remained remained quite stable and cooperative At present has a one-to-one sitter Fall precaution Needs bed and chair alarm Social service consulted for discharge planning Will need placement in dementia unit Peyton Karimi MD
[2017-12-07] MEDS: LEVOTHYROXINE 75 MCG TAB PO SCH (05:53)
[2017-12-07] MEDS: DOXYCYCLINE HYCLATE 100 MG CAP PO SCH ×2 (08:00→21:11)
[2017-12-07 08:02] VITALS: BP 126/76; PULSE 65; O2SAT 93
[2017-12-07] MEDS: LISINOPRIL 5 MG TAB PO SCH (08:20)
[2017-12-07] MEDS: FUROSEMIDE 20 MG TAB PO SCH (08:21)
[2017-12-07 08:30] VITALS: O2SAT 93
[2017-12-07] MEDS: QUETIAPINE FUMARATE 25 MG TAB PO PRN ×2 (08:39→17:15)
[2017-12-07] MEDS: ENOXAPARIN 40 MG/0.4 ML SYR SQ SCH (12:26)
[2017-12-07 15:16] VITALS: BP 104/70; PULSE 73; TEMP 36.4; O2SAT 94
--- NOTE | 2017-12-07 15:49 | Progress Note ---
Internal Med Progress Note Date of Service: Dec 07, 2017. Provider Documentation: SUBJECTIVE: Pleasantly confused Sitting up on chair, monitoring to himself [place] One-to-one sitter present This morning he was very agitated, accusing everybody for poisoning Security guards were called OBJECTIVE: Vital Signs-as noted below Exam: General-elderly male, advanced dementia Eyes-sclera nonicteric ENT-moist oral mucosa Lungs-clear to auscultate no wheeze or rales Heart-regular S1-S2 Abdomen-soft nontender Extremities-no rash or deformity Neuro-advanced dementia, with episodes of confusion delirium Ambulating independently, no focal neurological deficit noted Lab data as noted below. ASSESSMENT & PLAN: ADVANCED DEMENTIA WITH BEHAVIORAL ISSUES/AGITATION Continue to have episode of delirium/hallucination Risk of wandering outside Getting mad/agitated with nursing staff when he is asked to stay in room Patient already on Seroquel and trazodone One-to-one sitter present On trazodone 50 mg at dinner/25 at bedtime Seroquel 25 mg p.o. as needed for agitation will increase Seroquel to 25 mg every 6 hours as needed for agitation Waiting for placement in long-term dementia unit HYPERTENSION On lisinopril DC Lasix as patient has variable p.o. intake, increased chance of dehydration HYPOTHYROIDISM Continue Synthroid CKD STAGE III Renal function at baseline CODE STATUS: DNR/DNI discussed with DVT PROPHYLAXIS Patient is ambulating in room DC subcu Lovenox as patient's been refusing Not ordered SCD and teds, which will agitated the patient more DISPOSITION Patient will need placement in a locked dementia unit Social service consulted for discharge planning Vital Signs: Date Time Temp Pulse Resp B/P (MAP) Pulse Ox O2 Delivery O2 Flow Rate FiO2 12/08/17 15:41 36.5 59 18 96 Room Air 12/08/17 07:55 Room Air 12/08/17 07:09 36.6 64 18 104/64 (77) 93 Room Air 12/08/17 00:00 92 Room Air 12/07/17 22:29 36.6 63 20 102/61 (75) 90 Room Air Lab Results: Results Past 24 Hours Test 12/08/17 08:56 Range/Units Creatinine 1.47 0.60-1.40 mg/dl Est Creatinine Clear Calc Drug Dose 40.0 ml/min Estimated GFR () 52.9 Estimated GFR (Non- 45.7
[2017-12-07 16:03] VITALS: O2SAT 92
[2017-12-07] MEDS: TRAZODONE HCL 50 MG TAB PO SCH ×2 (17:15→21:10)
[2017-12-07 22:29] VITALS: BP 102/61; PULSE 63; TEMP 36.6; O2SAT 90
[2017-12-08] VITALS: O2SAT 92
[2017-12-08] MEDS: LEVOTHYROXINE 75 MCG TAB PO SCH (06:17)
[2017-12-08 07:09] VITALS: BP 104/64; PULSE 64; TEMP 36.6; O2SAT 93
[2017-12-08] MEDS: ENOXAPARIN 40 MG/0.4 ML SYR SQ SCH ×2 (08:00→08:14)
[2017-12-08] MEDS: DOXYCYCLINE HYCLATE 100 MG CAP PO SCH ×2 (08:14→18:23)
[2017-12-08] MEDS: LISINOPRIL 5 MG TAB PO SCH (08:14)
[2017-12-08] MEDS: FUROSEMIDE 20 MG TAB PO SCH (08:14)
[2017-12-08 09:50] LABS: CREATININE 1.47 mg/dl (0.60-1.40)
--- NOTE | 2017-12-08 14:19 | Progress Note ---
Internal Med Progress Note Date of Service: Dec 08, 2017. Provider Documentation: SUBJECTIVE: Continues to be disoriented, confused Episodes of agitation One-to-one sitter present OBJECTIVE: Vital Signs-as noted below Exam: General-elderly male, advanced dementia Eyes-sclera nonicteric ENT-moist oral mucosa Lungs-clear to auscultate no wheeze or rales Heart-regular S1-S2 Abdomen-soft nontender Extremities-no rash or deformity Neuro-advanced dementia, with episodes of confusion delirium Ambulating independently, no focal neurological deficit noted Lab data as noted below. ASSESSMENT & PLAN: ADVANCED DEMENTIA WITH BEHAVIORAL ISSUES/AGITATION Continue to have episode of delirium/hallucination Risk of wandering outside Getting mad/agitated with nursing staff when he is asked to stay in room On trazodone 50 mg at dinner/25 at bedtime Seroquel 25 mg p.o. twice daily as needed for agitation will increase Seroquel to 25 mg every 6 hours as needed for agitation Added p.o. Haldol Zyprexa and risperidone As per patient's -has not been sleeping for last few days, makes him more confused and combative Will DC as needed clonazepam as it made patient more agitated Psych consulted for adjustment of meds Waiting for placement in long-term dementia unit HYPERTENSION On lisinopril DC Lasix as patient has variable p.o. intake, increased chance of dehydration HYPOTHYROIDISM Continue Synthroid CKD STAGE III Renal function at baseline CODE STATUS: DNR/DNI discussed with DVT PROPHYLAXIS Patient is ambulating in room DC subcu Lovenox as patient's been refusing Not ordered SCD and teds, which will agitated the patient more DISPOSITION Patient will need placement in a locked dementia unit Social service consulted for discharge planning updated over phone Vital Signs: Date Time Temp Pulse Resp B/P (MAP) Pulse Ox O2 Delivery O2 Flow Rate FiO2 12/08/17 15:41 36.5 59 18 96 Room Air 12/08/17 07:55 Room Air 12/08/17 07:09 36.6 64 18 104/64 (77) 93 Room Air 12/08/17 00:00 92 Room Air 12/07/17 22:29 36.6 63 20 102/61 (75) 90 Room Air Lab Results: Results Past 24 Hours Test 12/08/17 08:56 Range/Units Creatinine 1.47 0.60-1.40 mg/dl Est Creatinine Clear Calc Drug Dose 40.0 ml/min Estimated GFR () 52.9 Estimated GFR (Non- 45.7
[2017-12-08 15:41] VITALS: PULSE 59; TEMP 36.5; O2SAT 96
[2017-12-08 16:02] VITALS: O2SAT 92
[2017-12-08] MEDS: TRAZODONE HCL 50 MG TAB PO SCH ×2 (18:23→20:00)
[2017-12-08] MEDS: QUETIAPINE FUMARATE 25 MG TAB PO PRN (18:50)
[2017-12-08] MEDS ORDERED: HALOPERIDOL 5 MG TAB PO ONE (19:17)
[2017-12-08] MEDS ORDERED: OLANZAPINE 2.5 MG TAB PO ONE (20:00)
[2017-12-08] MEDS: RISPERIDONE 0.5 MG TAB PO SCH (20:01)
[2017-12-09] MEDS: LEVOTHYROXINE 75 MCG TAB PO SCH (06:27)
[2017-12-09 07:07] VITALS: BP 116/76; PULSE 62; TEMP 36.6; O2SAT 93
[2017-12-09] MEDS ORDERED: OLANZAPINE 2.5 MG TAB PO SCH (08:00)
[2017-12-09] MEDS: LISINOPRIL 5 MG TAB PO SCH (08:13)
--- NOTE | 2017-12-09 14:25 | Progress Note ---
Internal Med Progress Note Date of Service: Dec 09, 2017. Provider Documentation: SUBJECTIVE: Seen and examined at bedside Pleasantly confused Sitter at bedside No family at bedside OBJECTIVE: Vital Signs-as noted below Physical Exam: General Appearance:Moderately built and nourished, no apparent distress Head: normocephalic, Atraumatic Eyes: normal inspection, EOMI, PERRL Neck: supple, Trachea midline Respiratory/Chest: Normal breath sounds, CTA Cardiovascular: S1, S2, No murmur Abdomen/GI:Soft, Non tender, Bowel sounds present Extremities/Musculoskelatal:normal inspection, trace edema Neurologic/Psych:grossly no focal neurological deficits, +Confused, disoriented Skin: normal color, warm Lab data as noted below. ASSESSMENT & PLAN: Advanced Dementia with Behavioral Issues Continue trazodone 50 mg at dinner/25 at bedtime Increased Seroquel to Q6H RPN Haldol PRN continue Zyprexa, risperidone clonazepam disconinued Psychiatry consulted for Input Waiting for placement in long-term dementia unit HTN: On lisinopril Lasix discontinued as patient has variable p.o. intake, increased risk for dehydration Hypothyroidism Continue Synthroid CKD III monitor Renal function Code Status: DNR/DNI DVT Px: Patient refusing SQ Lovenox Disposition: Needs placement in a locked dementia unit Social service consulted for discharge planning Vital Signs: Date Time Temp Pulse Resp B/P (MAP) Pulse Ox O2 Delivery O2 Flow Rate FiO2 12/09/17 08:00 Room Air 12/09/17 07:07 36.6 62 18 116/76 (89) 93 12/09/17 00:00 Room Air 12/08/17 16:02 92 Room Air 12/08/17 15:41 36.5 59 18 96 Room Air
[2017-12-09 14:30] VITALS: BP 97/72; PULSE 82; TEMP 36.3; O2SAT 97
--- NOTE | 2017-12-09 14:33 | Psychiatric Consultation ---
Consultation Date of Consultation Dec 09, 2017. Identifying Data Frank Putnam is a 77-year-old gentleman with dementia, just discharged from our hospital several days ago. He is readmitted with agitation. We are consulted for medication assistance. Information is gathered from the electronic medical record. Information gathered from the patient is not considered to be reliable. Chief Complaint None stated History of Present Illness The patient is a 77-year-old gentleman who was admitted to our hospital from December 03-. Family decided at the time of discharge that they wanted to try taking him home to continue to manage his dementia. Unfortunately after he got home, his agitation renewed to the point that he actually threw his down on the floor and was aggressive with her on more than one instance. They have therefore brought him back to the hospital as the is unable to safely manage him at home. Social service was informed that the family was working with the [facility] on long-term placement however it appears that they may have gotten their messages mixed up as [facility] was only working on the waiver program for further in-home care. At this time, the family is asking for skilled prison placement and in doing so a [facility] evaluation has been requested. Information is obtained from the patient's son who indicates that his father has no known psychiatric history. He described his father as a "hard-working man". He said that his father's dementia has been worsening over the last 3 years especially since he fell down steps and broke his neck about 3 years ago. He has not been taking any psychiatric medications. He describes that his first episode of aggressiveness was when he threw his down on the floor on December 01. On December 02, he was found in the basement on the floor in the house was in disarray. On Friday, December 05 he grabbed his by the wrists and police were called due to his aggression. According to the emergency department notes, the patient was brought back to the hospital because of visual hallucinations starting a few days ago. At that time said that she did not know what to do with him, prompting the return to the emergency department. At the time I see the patient, he is dressed in scrub pants, street shirt and a knit cap. He is ambulating in his room, cooperative with nursing direction. He wears a hearing aid but does not always act as if he hears my questions. I asked him multiple orientation questions which she is unable to answer and makes conversation about things that I cannot understand that have no relation to the questions asked. his conversation is rambling, without direction. He will not follow simple commands. In reviewing the chart, I see that he is on multiple medications. It appears to me as if both Risperdal and Zyprexa was started here in the hospital although the patient was on trazodone and Seroquel as an outpatient. To my knowledge, none of this has been prescribed by a psychiatrist. Past Psychiatric History Current OP Treatment: no current treatment Prior OP Treatment: no prior treatment Prior Psych Hospitalizations: none Suicide Attempts: No Past Medical/Surgical History (1) Dementia (2) HTN (hypertension) (3) Hypothyroidism Allergies Allergies: Coded Allergies: Sulfa Antibiotics (Unverified Allergy, Unknown, unk, 12/06/17) Home Medications Scheduled Doxycycline Hyclate (Doxycycline Hyclate), 1 CAP PO BID Furosemide (Lasix), 20 MG PO QAM Levothyroxine Sodium (Levothyroxine Sodium), 75 MCG PO DAILY Lisinopril (Zestril), 5 MG PO DAILY Trazodone HCl (Trazodone HCl), 1 TAB PO UD Trazodone Hcl (Trazodone), 0.5 TAB PO HS Scheduled PRN Clonazepam (Klonopin), 1 TAB PO DAILY PRN for Sleep Quetiapine Fumarate (Seroquel), 25 MG PO BID PRN for Agitation Family History Diabetes mellitus Hypertension Noncontributory Smoking Use Smoking Status: Unknown if Ever Smoked Personal History Lives in: [place] with his Relationship History: Legal History: none Psychological Trauma History: Denies Hx Traumatic Event Review of Systems Patient unable to participate due to severe dementia Examination Vital Signs Vital Signs Past 12 Hours Date Time Temp Pulse Resp B/P (MAP) Pulse Ox O2 Delivery O2 Flow Rate FiO2 12/09/17 08:00 Room Air 12/09/17 07:07 36.6 62 18 116/76 (89) 93 Laboratory Results 12/06/17 02:16 Red Blood Count 5.32, Mean Corpuscular Volume 84.6, Mean Corpuscular Hemoglobin 28.4, Mean Corpuscular Hemoglobin Concent 33.6, Mean Platelet Volume 9.3, Neutrophils (%) (Auto) 62.5, Lymphocytes (%) (Auto) 24.5, Monocytes (%) (Auto) 9.3, Eosinophils (%) (Auto) 2.9, Basophils (%) (Auto) 0.4, Neutrophils # (Auto) 5.00, Lymphocytes # (Auto) 1.96, Monocytes # (Auto) 0.74, Eosinophils # (Auto) 0.23, Basophils # (Auto) 0.03 12/06/17 02:16 12/08/17 08:56 Test 12/06/17 02:16 12/06/17 03:45 12/07/17 05:44 12/08/17 08:56 White Blood Count 7.99 K/uL (4.8-10.8) Red Blood Count 5.32 M/uL (4.7-6.1) Hemoglobin 15.1 g/dL (14.0-18.0) Hematocrit 45.0 % (42-52) Mean Corpuscular Volume 84.6 fL (80-100) Mean Corpuscular Hemoglobin 28.4 pg (25-34) Mean Corpuscular Hemoglobin Concent 33.6 g/dl (32-36) Platelet Count 206 K/uL (130-400) Mean Platelet Volume 9.3 fL (7.4-10.4) Neutrophils (%) (Auto) 62.5 % Lymphocytes (%) (Auto) 24.5 % Monocytes (%) (Auto) 9.3 % Eosinophils (%) (Auto) 2.9 % Basophils (%) (Auto) 0.4 % Neutrophils # (Auto) 5.00 K/uL (1.4-6.5) Lymphocytes # (Auto) 1.96 K/uL (1.2-3.4) Monocytes # (Auto) 0.74 K/uL (0.11-0.59) Eosinophils # (Auto) 0.23 K/uL (0-0.5) Basophils # (Auto) 0.03 K/uL (0-0.2) RDW Standard Deviation 43.1 fL (36.4-46.3) RDW Coefficient of Variation 14.1 % (11.5-14.5) Immature Granulocyte % (Auto) 0.4 % Immature Granulocyte # (Auto) 0.03 K/uL (0.00-0.02) Anion Gap 8.0 mmol/L (3-11) BUN/Creatinine Ratio 15.4 (10-20) Calcium Level 8.6 mg/dl (8.5-10.1) Total Bilirubin 0.4 mg/dl (0.2-1) Aspartate Amino Transf (AST/SGOT) 24 U/L (15-37) Alanine Aminotransferase (ALT/SGPT) 40 U/L (12-78) Alkaline Phosphatase 124 U/L (45-117) Troponin I < 0.015 ng/ml (0-0.045) Total Protein 7.4 gm/dl (6.4-8.2) Albumin 3.5 gm/dl (3.4-5.0) Globulin 3.9 gm/dl (2.5-4.0) Albumin/Globulin Ratio 0.9 (0.9-2) Ethyl Alcohol mg/dL < 3.0 mg/dl (0-3) Urine Color YELLOW Urine Appearance CLEAR (CLEAR) Urine pH 5.0 (4.5-7.5) Urine Specific [place] 1.026 (1.000-1.030) Urine Protein NEG (NEG) Urine Glucose (UA) NEG (NEG) Urine Ketones NEG (NEG) Urine Occult Blood NEG (NEG) Urine Nitrite NEG (NEG) Urine Bilirubin NEG (NEG) Urine Urobilinogen NEG (NEG) Urine Leukocyte Esterase NEG (NEG) Urine Opiates Screen NEG (NEG) Urine Methadone, Qualitative NEG (NEG) Urine Barbiturates NEG (NEG) Urine Phencyclidine (PCP) Level NEG (NEG) Ur Amphetamine/Methamphetamine NEG (NEG) MDMA (Ecstasy) Screen POS (NEG) Urine Benzodiazepines Screen NEG (NEG) Urine Cocaine Metabolite NEG (NEG) Urine Marijuana (THC) NEG (NEG) Thyroid Stimulating Hormone (TSH) 3.870 uIu/ml (0.300-4.500) Free Thyroxine 1.05 ng/dl (0.80-1.60) Est Creatinine Clear Calc Drug Dose 40.0 ml/min Estimated GFR () 52.9 Estimated GFR (Non- 45.7 Mental Examination During interview pt is: other (disoriented, unable to participate in conversation) Appearance: disheveled Speech: other (rambling, garbled) Affect: blunted Thought process: incoherent Impression / Recommendations Impression 77-year-old man with known vascular dementia, readmitted to the hospital due to family's inability to continue to care for him at home. guest services ambassador referring to prison facilities. We are asked for medication recommendations. At this point I see for different antipsychotics on his chart. His med rec indicates that he came in on trazodone and Seroquel. I suggest that we clean up his medication regimen and I am in favor of discontinuing Zyprexa, Risperdal and trazodone in favor of a more therapeutic trial of Seroquel. Because of recent reports from his that he has not been sleeping for several days, we will start with Seroquel 100 mg at bedtime in an attempt to reestablish good day night cycles and to limit agitation. I will continue 25 mg every 4 hours as needed as well. If the patient is unable or unwilling during any agitated. To take medications, I will leave a as needed order of Haldol 5 mg IM every 6 hours as needed but p.o. meds should be tried first. Moving forward to a long term, the patient will not be allowed to have as needed antipsychotics and so we will continue to follow along to adjust dosing as necessary in an attempt to limited to scheduled medications only. Recommendations (1) Dementia 12/09 - In an attempt to clean up his medications I will DC risperdal, trazodone and Zyprexa in favor of more therapeutic doses of Seroquel. Will start with 100 mg. HS and 25 mg. q 4 hr prn. - Would avoid all deliriogenic meds - [employer] nursing to use good delirium interventions including up during the day, sleep at night, physical activity, frequent reorientation Dr. Faustina Jones has personally been involved in the review of this case and development of these recommendations.
[2017-12-09] MEDS: TRAZODONE HCL 50 MG TAB PO SCH ×2 (16:30→21:17)
[2017-12-09] MEDS: QUETIAPINE FUMARATE 25 MG TAB PO PRN (21:16)
[2017-12-09] MEDS: RISPERIDONE 0.5 MG TAB PO SCH (21:17)
[2017-12-09 22:58] VITALS: BP 111/65; PULSE 107; O2SAT 95
[2017-12-10] MEDS: LEVOTHYROXINE 75 MCG TAB PO SCH (06:21)
[2017-12-10] MEDS: LISINOPRIL 5 MG TAB PO SCH (08:31)
[2017-12-10 08:59] VITALS: BP 139/82; PULSE 76; TEMP 36.5; O2SAT 95
--- NOTE | 2017-12-10 14:58 | Progress Note ---
Internal Med Progress Note Date of Service: Dec 10, 2017. Provider Documentation: SUBJECTIVE: Seen and examined at bedside Lying comfortably in bed Pleasantly confused- no change per staff Sitter at bedside Hasn't slept well overnight per staff No family at bedside OBJECTIVE: Vital Signs-as noted below Physical Exam: General Appearance:Moderately built and nourished, no apparent distress Head: normocephalic, Atraumatic Eyes: normal inspection, EOMI, PERRL Neck: supple, Trachea midline Respiratory/Chest: Normal breath sounds, CTA Cardiovascular: S1, S2, No murmur Abdomen/GI:Soft, Non tender, Bowel sounds present Extremities/Musculoskelatal:normal inspection, trace edema Neurologic/Psych:grossly no focal neurological deficits, +Confused, disoriented Skin: normal color, warm Lab data as noted below. ASSESSMENT & PLAN: Advanced Dementia with Behavioral Issues Discontinued Risperdal, trazodone and Zyprexa Started on Seroquel 100mg QHS Continue Seroquel PRN as needed Haldol PRN for agitation-only if not controlled with PO meds Appreciate Psychiatry Input Waiting for placement in long-term dementia unit Frequent reorientation to prevent delirium HTN: On lisinopril Lasix discontinued as patient has variable p.o. intake, increased risk for dehydration Hypothyroidism Continue Synthroid CKD III monitor Renal function Code Status: DNR/DNI DVT Px: Patient refusing SQ Lovenox encourage to ambulate Disposition: Needs placement in a locked dementia unit Social service consulted for discharge planning Vital Signs: Date Time Temp Pulse Resp B/P (MAP) Pulse Ox O2 Delivery O2 Flow Rate FiO2 12/10/17 08:59 36.5 76 18 139/82 (101) 95 Room Air 12/10/17 08:00 Room Air 12/10/17 00:00 Room Air 12/09/17 22:58 107 20 111/65 (80) 95 Room Air 12/09/17 15:59 Room Air
[2017-12-10] MEDS: HALOPERIDOL 5 MG TAB PO PRN (17:42)
[2017-12-10] MEDS ORDERED: QUETIAPINE FUMARATE 100 MG TAB PO SCH (22:00)
[2017-12-10 22:14] VITALS: BP 106/66; PULSE 70; TEMP 36.7; O2SAT 91
[2017-12-11] MEDS: HALOPERIDOL 5 MG TAB PO PRN (00:19)
[2017-12-11] MEDS: LISINOPRIL 5 MG TAB PO SCH (08:24)
[2017-12-11] MEDS: LEVOTHYROXINE 75 MCG TAB PO SCH (08:25)
[2017-12-11 09:25] VITALS: BP 105/66; PULSE 74; TEMP 36.3; O2SAT 95
[2017-12-11 14:54] VITALS: BP 111/71; PULSE 74; TEMP 36.6; O2SAT 94
--- NOTE | 2017-12-11 15:02 | Progress Note ---
Internal Med Progress Note Date of Service: Dec 11, 2017. Provider Documentation: SUBJECTIVE: Seen and examined at bedside No agitation issues today Pleasantly confused Sitter at bedside No family at bedside Haldol discontinued Seroquel increased to 150mg QHS OBJECTIVE: Vital Signs-as noted below Physical Exam: General Appearance:Moderately built and nourished, no apparent distress Head: normocephalic, Atraumatic Eyes: normal inspection, EOMI, PERRL Neck: supple, Trachea midline Respiratory/Chest: Normal breath sounds, CTA Cardiovascular: S1, S2, No murmur Abdomen/GI:Soft, Non tender, Bowel sounds present Extremities/Musculoskelatal:normal inspection, trace edema Neurologic/Psych:grossly no focal neurological deficits, +Confused, disoriented Skin: normal color, warm Lab data as noted below. ASSESSMENT & PLAN: Advanced Dementia with Behavioral Issues Discontinued Risperdal, trazodone, Haldol and Zyprexa Seroquel increased to 150mg QHS Continue Seroquel PRN as needed for agitation Appreciate Psychiatry Input Waiting for placement in long-term dementia unit Frequent reorientation to prevent delirium HTN: On lisinopril Lasix discontinued as patient has variable p.o. intake, increased risk for dehydration Hypothyroidism Continue Synthroid CKD III monitor Renal function Code Status: DNR/DNI DVT Px: Patient refusing SQ Lovenox encourage to ambulate Disposition: Needs placement in a locked dementia unit Social service consulted for discharge planning Vital Signs: Date Time Temp Pulse Resp B/P (MAP) Pulse Ox O2 Delivery O2 Flow Rate FiO2 12/11/17 14:54 36.6 74 16 111/71 (84) 94 Room Air 12/11/17 09:25 36.3 74 16 105/66 (79) 95 Room Air 12/11/17 08:30 Room Air 12/11/17 00:00 Room Air 12/10/17 22:14 36.7 70 20 106/66 (79) 91 Room Air 12/10/17 16:00 Room Air
[2017-12-11] MEDS: QUETIAPINE FUMARATE 100 MG TAB PO SCH (21:47)
[2017-12-11 23:05] VITALS: BP 114/73; PULSE 125; O2SAT 94
[2017-12-12 09:08] VITALS: BP 111/68; PULSE 67; O2SAT 95
[2017-12-12] MEDS: LEVOTHYROXINE 75 MCG TAB PO SCH (09:29)
[2017-12-12] MEDS: LISINOPRIL 5 MG TAB PO SCH (09:30)
--- NOTE | 2017-12-12 15:22 | Progress Note ---
Internal Med Progress Note Date of Service: Dec 12, 2017. Provider Documentation: SUBJECTIVE: Seen and examined at bedside No agitation issues per staff confused Sitter at bedside No new issues OBJECTIVE: Vital Signs-as noted below Physical Exam: General Appearance:Moderately built and nourished, no apparent distress Head: normocephalic, Atraumatic Eyes: normal inspection, EOMI, PERRL Neck: supple, Trachea midline Respiratory/Chest: Normal breath sounds, CTA Cardiovascular: S1, S2, No murmur Abdomen/GI:Soft, Non tender, Bowel sounds present Extremities/Musculoskelatal:normal inspection, trace edema Neurologic/Psych:grossly no focal neurological deficits, +Confused, disoriented Skin: normal color, warm Lab data as noted below. ASSESSMENT & PLAN: Advanced Dementia with Behavioral Issues Discontinued Risperdal, trazodone, Haldol and Zyprexa Seroquel increased to 150mg QHS Continue Seroquel PRN as needed for agitation Appreciate Psychiatry Input Waiting for placement in long-term dementia unit Frequent reorientation to prevent delirium continue current management HTN: On lisinopril Lasix discontinued as patient has variable p.o. intake, increased risk for dehydration Hypothyroidism Continue Synthroid CKD III monitor Renal function Code Status: DNR/DNI DVT Px: Patient refusing SQ Lovenox encourage to ambulate Disposition: Needs placement- Likely Friday Social service consulted for discharge planning Vital Signs: Date Time Temp Pulse Resp B/P (MAP) Pulse Ox O2 Delivery O2 Flow Rate FiO2 12/12/17 09:08 67 16 111/68 (82) 95 Room Air 12/12/17 08:00 Room Air 12/12/17 00:00 Room Air 12/11/17 23:05 125 16 114/73 (87) 94 Room Air 12/11/17 19:30 Room Air
[2017-12-12] MEDS: QUETIAPINE FUMARATE 100 MG TAB PO SCH (22:08)
[2017-12-12 23:37] VITALS: BP 123/89; PULSE 107; PULSE 78; O2SAT 93
[2017-12-13] MEDS: LEVOTHYROXINE 75 MCG TAB PO SCH (06:44)
[2017-12-13 07:36] VITALS: BP 155/80; PULSE 66; O2SAT 95
[2017-12-13 08:05] VITALS: O2SAT 95
[2017-12-13] MEDS: LISINOPRIL 5 MG TAB PO SCH (09:00)
[2017-12-13] MEDS: QUETIAPINE FUMARATE 25 MG TAB PO PRN (13:30)
--- NOTE | 2017-12-13 15:51 | Progress Note ---
Internal Med Progress Note Date of Service: Dec 13, 2017. Provider Documentation: SUBJECTIVE: Seen and examined at bedside Doing well confused Sitter at bedside OBJECTIVE: Vital Signs-as noted below Physical Exam: General Appearance:Moderately built and nourished, no apparent distress Head: normocephalic, Atraumatic Eyes: normal inspection, EOMI, PERRL Neck: supple, Trachea midline Respiratory/Chest: Normal breath sounds, CTA Cardiovascular: S1, S2, No murmur Abdomen/GI:Soft, Non tender, Bowel sounds present Extremities/Musculoskelatal:normal inspection, trace edema Neurologic/Psych:grossly no focal neurological deficits, +Confused, disoriented Skin: normal color, warm Lab data as noted below. ASSESSMENT & PLAN: Advanced Dementia with Behavioral Issues Discontinued Risperdal, trazodone, Haldol and Zyprexa Seroquel increased to 150mg QHS Continue Seroquel PRN as needed for agitation Appreciate Psychiatry Input Waiting for placement in long-term dementia unit Frequent reorientation to prevent delirium Likely discharge on Friday HTN: On lisinopril Lasix discontinued as patient has variable p.o. intake, increased risk for dehydration Hypothyroidism Continue Synthroid CKD III stable Code Status: DNR/DNI DVT Px: encourage to ambulate Disposition: Needs placement- Likely Friday Social service consulted for discharge planning Vital Signs: Date Time Temp Pulse Resp B/P (MAP) Pulse Ox O2 Delivery O2 Flow Rate FiO2 12/13/17 08:05 95 Room Air 12/13/17 07:36 66 18 155/80 (105) 95 Room Air 12/13/17 00:00 Room Air 12/12/17 23:37 78 18 123/89 (100) 93 Room Air
[2017-12-13 15:52] VITALS: BP 124/87; PULSE 106
[2017-12-13] MEDS: QUETIAPINE FUMARATE 100 MG TAB PO SCH (21:07)
[2017-12-14 08:31] VITALS: BP 114/76; PULSE 75; O2SAT 95
[2017-12-14] MEDS: LEVOTHYROXINE 75 MCG TAB PO SCH (09:26)
[2017-12-14] MEDS: LISINOPRIL 5 MG TAB PO SCH (09:27)
[2017-12-14] MEDS: QUETIAPINE FUMARATE 25 MG TAB PO PRN (12:19)
--- NOTE | 2017-12-14 12:42 | Progress Note ---
Internal Med Progress Note Date of Service: Dec 14, 2017. Provider Documentation: SUBJECTIVE: Seen and examined at bedside Currently having lunch waiting for placement confused Sitter at bedside OBJECTIVE: Vital Signs-as noted below Physical Exam: General Appearance:Moderately built and nourished, no apparent distress Head: normocephalic, Atraumatic Eyes: normal inspection, EOMI, PERRL Neck: supple, Trachea midline Respiratory/Chest: Normal breath sounds, CTA Cardiovascular: S1, S2, No murmur Abdomen/GI:Soft, Non tender, Bowel sounds present Extremities/Musculoskelatal:normal inspection, trace edema Neurologic/Psych:grossly no focal neurological deficits, +Confused, disoriented Skin: normal color, warm Lab data as noted below. ASSESSMENT & PLAN: Advanced Dementia with Behavioral Issues Discontinued Risperdal, trazodone, Haldol and Zyprexa Seroquel increased to 150mg QHS Continue Seroquel PRN as needed for agitation Appreciate Psychiatry Input Waiting for placement in long-term dementia unit Frequent reorientation to prevent delirium Likely discharge tomorrow continue current meds HTN: On lisinopril Lasix discontinued as patient has variable p.o. intake, increased risk for dehydration Hypothyroidism Continue Synthroid CKD III stable Code Status: DNR/DNI DVT Px: encourage to ambulate Disposition: Needs placement- Likely Friday Social service consulted for discharge planning Vital Signs: Date Time Temp Pulse Resp B/P (MAP) Pulse Ox O2 Delivery O2 Flow Rate FiO2 12/14/17 08:31 75 20 114/76 (89) 95 12/14/17 08:00 Room Air 12/14/17 00:00 Room Air 12/13/17 16:00 Room Air 12/13/17 15:52 106 18 124/87 (99)
[2017-12-14] MEDS: QUETIAPINE FUMARATE 100 MG TAB PO SCH (20:10)
[2017-12-15 08:30] VITALS: BP 113/80; PULSE 76; O2SAT 94
[2017-12-15] MEDS: LEVOTHYROXINE 75 MCG TAB PO SCH (09:00)
[2017-12-15] MEDS: LISINOPRIL 5 MG TAB PO SCH (09:00)
[2017-12-15 13:47] VITALS: BP 122/83; PULSE 75; O2SAT 97
[2017-12-15] MEDS: QUETIAPINE FUMARATE 25 MG TAB PO PRN (14:40)
--- NOTE | 2017-12-15 17:03 | Progress Note ---
Internal Med Progress Note Date of Service: Dec 15, 2017. Provider Documentation: SUBJECTIVE: Seen and examined at bedside Seen walking in Hallway with no distress waiting for placement Pleasantly confused Sitter at bedside OBJECTIVE: Vital Signs-as noted below Physical Exam: General Appearance:Moderately built and nourished, no apparent distress Head: normocephalic, Atraumatic Eyes: normal inspection, EOMI, PERRL Neck: supple, Trachea midline Respiratory/Chest: Normal breath sounds, CTA Cardiovascular: S1, S2, No murmur Abdomen/GI:Soft, Non tender, Bowel sounds present Extremities/Musculoskelatal:normal inspection, trace edema Neurologic/Psych:grossly no focal neurological deficits, +Confused, disoriented Skin: normal color, warm Lab data as noted below. ASSESSMENT & PLAN: Advanced Dementia with Behavioral Issues Discontinued Risperdal, trazodone, Haldol and Zyprexa Seroquel increased to 150mg QHS Continue Seroquel PRN as needed for agitation Appreciate Psychiatry Input Waiting for placement in long-term dementia unit Frequent reorientation to prevent delirium Waiting for Insurance Auth and placement HTN: On lisinopril Lasix discontinued as patient has variable p.o. intake, increased risk for dehydration Hypothyroidism Continue Synthroid CKD III stable Code Status: DNR/DNI DVT Px: encourage to ambulate Disposition: Plan to discharge when accepted Social service consulted for discharge planning Vital Signs: Date Time Temp Pulse Resp B/P (MAP) Pulse Ox O2 Delivery O2 Flow Rate FiO2 12/15/17 13:47 75 19 122/83 (96) 97 Room Air 12/15/17 08:30 76 18 113/80 (91) 94 Room Air 12/15/17 08:00 Room Air 12/15/17 00:30 Room Air 12/14/17 19:21 Room Air
[2017-12-15] MEDS: QUETIAPINE FUMARATE 100 MG TAB PO SCH (22:34)
[2017-12-15 22:39] VITALS: BP 116/76; PULSE 86; TEMP 36.7; O2SAT 94
[2017-12-16] VITALS: O2SAT 94
[2017-12-16] MEDS: LEVOTHYROXINE 75 MCG TAB PO SCH (06:10)
[2017-12-16 06:34] VITALS: BP 109/71; PULSE 68; TEMP 36.3; O2SAT 92
[2017-12-16] MEDS: LISINOPRIL 5 MG TAB PO SCH (08:28)
[2017-12-16] MEDS ORDERED: SRQ25 PO (08:53)
[2017-12-16] MEDS ORDERED: SRQ/100 PO (08:53)
--- NOTE | 2017-12-16 08:56 | Discharge Instructions ---
Discharge Instructions Date of Service Dec 16, 2017. Admission Reason for Admission: Agitation,Dementia Discharge Discharge Diagnosis / Problem: ADVANCED DEMENTIA /DELIRIUM Discharge Goals Goal(s): Decrease discomfort, Improve function, Therapeutic intervention Activity Recommendations Activity Level: Ambulates in room, Assistance Required (NEEDS SUPERVISION PATIENT DOSE NOT HAVE SAFETY CONCERN ) . Additional Information Patient informed of condition: Yes Advance Directives: Yes DNR: Yes Level of Care: Other (DEMENTIA PLACEMENT ) Communicable Disease: No Prognosis: Other (ADVANCED DEMENTIA ) Cuevas Catheter: No Instructions / Follow-Up Instructions / Follow-Up CONTINUE TO FOLLOW UP WITH PHYSICIANS AT DEMENTIA UNIT FOR ADJUSTMENT OF MEDICATIONS FOR DEMENTIA Current Hospital Diet Patient's current hospital diet: Regular Diet Discharge Diet Recommended Diet: Regular Diet Pending Studies Studies pending at discharge: no Medical Emergencies . Who to Call and When: Medical Emergencies: If at any time you feel your situation is an emergency, please call 911 immediately. . Non-Emergent Contact Non-Emergency issues call your: Primary Care Provider . . "Provider Documentation" section prepared by Peyton Karimi. . Core Measure Problem Core Measures: None
--- NOTE | 2017-12-16 12:39 | Progress Note ---
Internal Med Progress Note Date of Service: Dec 16, 2017. Provider Documentation: SUBJECTIVE: Remains confused, No evidence of agitation, combativeness noted Per nursing patient remains in 15 minutes Accu-Chek Has been walking on the hallway independently No loss of balance, no gait disturbance noted OBJECTIVE: Vital Signs-as noted below Exam: General-elderly male, advanced dementia, does not follow any commands Eyes-sclera nonicteric ENT-moist oral mucosa Lungs-clear to auscultate no wheeze or rales Heart-regular S1-S2 Abdomen-soft nontender Extremities-no rash or deformity Neuro-advanced dementia, no orientation to place or person Ambulating independently, no focal neurological deficit noted Lab data as noted below. ASSESSMENT & PLAN: ADVANCED DEMENTIA WITH BEHAVIORAL DISTURBANCE/AGITATION Symptom improved after adjusting Seroquel dose Patient is currently on Seroquel 150 mg at bedtime And 25 mg p.o. every 4 hours as needed for agitation Appreciate input from psychiatry Patient was on multiple psychiatric meds -risperidone, trazodone, Zyprexa discontinued -Avoid all medication that can worsen mental status including benzodiazepine, anticholinergic drugs -Encourage nursing to use good delirium i interventions including help patient to stay up during the day, sleep at night to help keep the normal circadian rhythm which is known to eliminate confusion/agitation -encourage physical activity/mobility during day time -as tolerated to keep patient engaged Frequent reorientation for place and person, especially afternoons and evenings to help prevent sundowning effects Waiting for placement in long-term dementia unit HYPERTENSION Blood pressure remained stable On lisinopril DC Lasix as patient has variable p.o. intake, increased chance of dehydration HYPOTHYROIDISM Continue Synthroid CKD STAGE III Renal function at baseline CODE STATUS: DNR/DNI discussed with DVT PROPHYLAXIS Patient is ambulating in room DC subcu Lovenox as patient's been refusing Not ordered SCD and teds, which will agitated the patient more DISPOSITION Patient will need placement in a locked dementia unit Social service following for discharge planning Referral made to [facility]/dementia unit-patient is accepted Patient will need arrangements for transportation Waiting for insurance authorization Medically stable to be transferred to dementia unit when approved by insurance Vital Signs: Date Time Temp Pulse Resp B/P (MAP) Pulse Ox O2 Delivery O2 Flow Rate FiO2 12/16/17 08:00 Room Air 12/16/17 06:34 36.3 68 16 109/71 (84) 92 Room Air 12/16/17 00:00 94 Room Air 12/15/17 22:39 36.7 86 116/76 (89) 94 Room Air 12/15/17 20:00 Room Air 12/15/17 16:30 Room Air 12/15/17 13:47 75 19 122/83 (96) 97 Room Air
--- NOTE | 2017-12-16 14:50 | Discharge Summary ---
Discharge Summary Date of Service Dec 16, 2017. Discharge Summary Admission Date: Dec 06, 2017 at 05:28 Discharge Date: Dec 16, 2017 Discharge Disposition: long-term facility ([facility] /) Principal Diagnosis: ADVANCED DEMENTIA /DELIRIUM Consultations: PSYCHIATRY Medication Reconciliation New Medications: Quetiapine Fumarate (Seroquel) 100 Mg Tab 150 MG PO HS for 30 Days, TAB Quetiapine Fumarate (Quetiapine Fumarate) 25 Mg Tab 25 MG PO Q6 PRN for Agitation, #90 TAB Continued Medications: Levothyroxine Sodium (Levothyroxine Sodium) 75 Mcg Tab 75 MCG PO DAILY for 90 Days, #90 TAB 3 Refills Lisinopril (Zestril) 5 Mg Tab 5 MG PO DAILY, TAB Discontinued Medications: Clonazepam (Klonopin) 0.5 Mg Tab 1 TAB PO DAILY PRN for Sleep for 30 Days, #30 TAB Doxycycline Hyclate (Doxycycline Hyclate) 100 Mg Cap 1 CAP PO BID for 4 Days, #8 CAP Furosemide (Lasix) 20 Mg Tab 20 MG PO QAM, TAB Quetiapine Fumarate (Seroquel) 25 Mg Tab 25 MG PO BID PRN for Agitation, TAB Trazodone HCl (Trazodone HCl) 50 Mg Tab 1 TAB PO UD 1 tab at dinner Trazodone Hcl (Trazodone) 50 Mg Tab 0.5 TAB PO HS, TAB Admission Information HPI (per Admitting provider): DATE OF ADMISSION: 12/06/2017 CHIEF COMPLAINT: Altered mental status. HISTORY OF PRESENT ILLNESS: This is a 77-year-old male with past medical history significant for hypertension, dementia, hypothyroidism, was recently in the hospital for worsening dementia and agitation and was not able to take care of him at home and he was admitted and he was also treated for community-acquired pneumonia and he was seemed to be at baseline and patient's family decided to take him home and he was discharged . But at home, patient was again getting agitated and was not able to take care of him and was brought him to the ER. In the ER, patient was agitated requiring security in the room. Otherwise, he is hemodynamically stable, could not tell his name and could not get any other review of symptoms from the patient, was able to examine him briefly. ALLERGIES: SULFA ANTIBIOTICS. PAST MEDICAL HISTORY: As mentioned above. PAST SURGICAL HISTORY: History of lumbar surgery, history of hernia repair. FAMILY HISTORY: Diabetes, hypertension. SOCIAL HISTORY: Former smoker, quit in 1959. No alcohol use, no drug use. , currently lives with his significant other. REVIEW OF SYSTEMS: Unobtainable. MEDICATIONS: Patient is on doxepin 100 mg p.o. b.i.d. for 4 more days, Lasix 20 mg daily, levothyroxine 75 mcg daily, lisinopril 5 mg daily, Seroquel 25 mg p.o. b.i.d. p.r.n., trazodone 50 mg 1 tablet at dinner and 0.5 mg tablet at bedtime. Physical Exam (per Admitting): PHYSICAL EXAMINATION: GENERAL: Patient is of moderate built, somewhat agitated. VITAL SIGNS: Temperature 36.4, pulse 64, respiratory rate 20, blood pressure 150/87, oxygen 96% on room air. HEENT: Pupils reactive to light. NECK: No obvious neck masses seen. CARDIOVASCULAR: S1, S2 heard, regular rate and rhythm, no murmur, no gallop. RESPIRATORY SYSTEM: Normal AP diameter. No accessory muscle use. No wheezing, no crackles. ABDOMEN: Soft, bowel sounds present. Nontender. No distention. CENTRAL NERVOUS SYSTEM: Alert and awake, agitated. EXTREMITIES: No edema, no erythema seen. Hospital Course ADVANCED DEMENTIA WITH BEHAVIORAL DISTURBANCE/AGITATION Symptom improved after adjusting Seroquel dose Patient is currently on Seroquel 150 mg at bedtime And 25 mg p.o. every 4 hours as needed for agitation Appreciate input from psychiatry Patient was on multiple psychiatric meds -risperidone, trazodone, Zyprexa discontinued -Avoid all medication that can worsen mental status including benzodiazepine, anticholinergic drugs -Encourage nursing to use good delirium i interventions including help patient to stay up during the day, sleep at night to help keep the normal circadian rhythm which is known to eliminate confusion/agitation -encourage physical activity/mobility during day time -as tolerated to keep patient engaged Frequent reorientation for place and person, especially afternoons and evenings to help prevent sundowning effects Waiting for placement in long-term dementia unit HYPERTENSION Blood pressure remained stable On lisinopril DC Lasix as patient has variable p.o. intake, increased chance of dehydration HYPOTHYROIDISM Continue Synthroid CKD STAGE III Renal function at baseline CODE STATUS: DNR/DNI discussed with DVT PROPHYLAXIS Patient is ambulating in room DC subcu Lovenox as patient's been refusing Not ordered SCD and teds, which will agitated the patient more DISPOSITION Patient will need placement in a locked dementia unit Social service following for discharge planning Referral made to [facility]/dementia unit-patient is accepted Patient will need arrangements for transportation Waiting for insurance authorization Medically stable to be transferred to dementia unit when approved by insurance Total time spent on discharge = 35 mins This includes examination of the patient, discharge planning, medication reconciliation, and communication with other providers. Discharge Instructions Discharge Instructions Date of Service Dec 16, 2017. Admission Reason for Admission: Agitation,Dementia Discharge Discharge Diagnosis / Problem: ADVANCED DEMENTIA /DELIRIUM Discharge Goals Goal(s): Decrease discomfort, Improve function, Therapeutic intervention Activity Recommendations Activity Level: Ambulates in room, Assistance Required (NEEDS SUPERVISION PATIENT DOSE NOT HAVE SAFETY CONCERN ) . Additional Information Patient informed of condition: Yes Advance Directives: Yes DNR: Yes Level of Care: Other (DEMENTIA PLACEMENT ) Communicable Disease: No Prognosis: Other (ADVANCED DEMENTIA ) Cuevas Catheter: No Instructions / Follow-Up Instructions / Follow-Up CONTINUE TO FOLLOW UP WITH PHYSICIANS AT DEMENTIA UNIT FOR ADJUSTMENT OF MEDICATIONS FOR DEMENTIA Current Hospital Diet Patient's current hospital diet: Regular Diet Discharge Diet Recommended Diet: Regular Diet Pending Studies Studies pending at discharge: no Medical Emergencies . Who to Call and When: Medical Emergencies: If at any time you feel your situation is an emergency, please call 911 immediately. . Non-Emergent Contact Non-Emergency issues call your: Primary Care Provider . . "Provider Documentation" section prepared by Peyton Karimi. . Core Measure Problem Core Measures: None
[2017-12-16 15:40] VITALS: BP 109/71; PULSE 68; TEMP 36.3; O2SAT 92
== END 2017-12-16 16:24 | DRG 884 ==
LOC: EDBD 00:15 → C.EDB 00:16 → C.MS4W 05:28 → ENRESERV 05:47 → C.4E 12-12 15:50
PROVIDERS: ADMIT Hospitalist; ATTEND Hospitalist
DX: F03.91 Unspecified dementia, unspecified severity, with behavioral disturbance (principal); E86.0 Dehydration; I12.9 Hypertensive chronic kidney disease with stage 1 through stage 4 chronic kidney disease, or unspecified chronic kidney disease; E03.9 Hypothyroidism, unspecified; Z83.3 Family history of diabetes mellitus; Z87.891 Personal history of nicotine dependence; R45.1 Restlessness and agitation; N18.3 Chronic kidney disease, stage 3 (moderate); Z88.2 Allergy status to sulfonamides; Z66 Do not resuscitate